=== PATIENT | male | born 1995 | race Caucasian/White ===

== ENCOUNTER 2017-04-22 20:16 | Emergency (ER) | payer MEDICAID ==
--- NOTE | 2017-04-22 21:26 | ED Physician Chart ---
ED Chief Complaint/HPI - Patient Information Date Seen:: 04/22/17 Time Seen:: 20:22 Chief Complaint:: Decreased hearing in L ear for about 2 days. History of Present Illness:: Pt has noticed decrease in hearing in L ear for 2 days after swimming. No ear ache per se. No fever. No N/V/D. No tinnitus or vertigo. Allergies:: Allergies Allergy/AdvReac Type Severity Reaction Status Date / Time ceftriaxone [From Rocephin] Allergy Verified 04/22/17 20:22 Vitals:: Vital Signs - 8 hr 04/22/17 20:20 Temp 98.1 F HR 100 RR 18 BP 143/113 O2 Sat % 95 Historian:: Patient Family MD/PCP:: Unknown LMP:: N/A Review:: Nurse's Note Reviewed ED Review of Systems - Review of Systems General/Constitutional: No fever, No weight loss, No weakness, No edema, No loss of appetite Skin: No skin lesions, No rash, No bruising Head: No headache, No light-headedness Eyes: No loss of vision, No pain, No diplopia ENT: No earache, No nasal drainage, No sore throat, No tinnitus, Other ( Decrease in hearing in L ear for 2 days, see HPI.) Neck: No neck pain, No swelling, No stiffness Cardio Vascular: No chest pain, No palpitations Pulmonary: No SOB, No cough, No wheezing GI: No nausea, No vomiting, No diarrhea, No pain G/U: No dysuria, No frequency, No hematuria Musculoskeletal: No bone or joint pain, No back pain, No muscle pain Psychiatric: No prior psych history ED Past Medical History - Past Medical History Past Medical History: DM (Accuchek was offered, but pt declined and preferred to do it at home.) Family History: Diabetes Melitus (father) Social History: Non Smoker, No Alcohol, No Drug Use, Single, Other (lives with his parents.) Surgical History: None Psychiatricy History: None Medication: Reviewed Family Medical History - Family Member Mother History Unknown: Yes Ethnicity: Non- Living Status: Still Living ED Physical Exam - Physical Examination General/Constitutional: Awake, Well-developed, well-nourished, Alert, No distress, GCS 15, Non-toxic appearing, Ambulatory Other Gen/Cons comments:: Breathes comfortably, speaks clearly, interacts normally, and ambulates without difficulty. Head: Atraumatic Eyes: Lids, conjuctiva normal, PERRL, EOMI Skin: Nl inspection, No rash, No skin lesions, No ecchymosis, Well hydrated, No lymphadenopathy ENMT: Nasal exam nl, Lips, teeth, gums nl, Oropharynx nl Other ENMT comments:: Both ears shows large amount of cerumen. No erythema, swelling, or exudate. See further exam in Reassessment. Neck: Nontender, Full ROM w/o pain, No nuchal rigidity, No mass, No stridor Respiratory: Nl effort/Exclusion, Clear to Auscultation, No Wheeze/Rhonchi/Rales Cardio Vascular: RRR, No murmur, gallop, rubs Neuro/Psych: Alert/oriented (oriented x 3.), Mood normal, Normal gait, No focal deficits ED Septic Shock - . Is Septic Shock (SBP<90, OR Lactate>4 mmol\L) present?: No - <6hrs of presentation: Vital Signs: Vital Signs - 8 hr 04/22/17 20:20 Temp 98.1 F HR 100 RR 18 BP 143/113 O2 Sat % 95 ED Reassessment (Disposition) - Reassessment Reassessment:: 2240 Pt now hears well after ear lavage. L ear is clear with TM intact. There is mild erythema in external auditory canal. No exudate. R ear still has residual cerumen, but pt prefers not to have further ear lavage or cerumen removal to be performed. TM is intact. No other abnormal findings. Pt requests to go home now and does not want further observation/management in hospital. Aftercare instructions have been given. Reassessment Condition:: Improved - Diagnosis Diagnosis:: Bilateral cerumen impaction, resolved. - Aftercare/Follow up Instructions Aftercare/Follow-Up Instructions:: Refer to Discharge Instructions Notes:: Keep ears clean and dry. F/U with Dr. Castaneda or PCP of pt's choice in one day for recheck. Return to ER immediately if condition worsens or if any further questions/problems. Medication Prescribed:: Cortisporin otic suspension Instill 4 gtts in both ears q8h as directed. D- one bottle R-0 - Patient Disposition Discharge/Transfer:: Home Time:: 22:45 Condition at Disposition:: Stable, Improved ED Discharge Plan - Patient Disposition Instructions: Cerumen Impaction Additional Instructions: follow up with ENT doctor within 1-2 days
== END 2017-04-22 22:45 | disposition home or self-care (01) ==
LOC: ER 20:16
DX: H61.23 Impacted cerumen, bilateral (principal); E11.9 Type 2 diabetes mellitus without complications
CPT/HCPCS: Z7502